=== PATIENT | male | born 1955 | race Caucasian/White ===

== ENCOUNTER → 2019-05-14 | Outpatient (CLI) | payer MEDICARE, OTHER | END | disposition home or self-care (01) | LOC: LABWHC1 16:46 | PROVIDERS: ATTEND Orthopaedic Surgery | DX: M79.671 Pain in right foot (principal); M84.374A Stress fracture, right foot, initial encounter for fracture | CPT/HCPCS: 36415; 82306 ==

== ENCOUNTER → 2019-06-11 | Outpatient (CLI) | payer MEDICARE, OTHER | END | disposition home or self-care (01) | LOC: LABWHC1 17:14 | PROVIDERS: ATTEND Orthopaedic Surgery | DX: M79.671 Pain in right foot (principal); M84.374D Stress fracture, right foot, subsequent encounter for fracture with routine healing | CPT/HCPCS: 36415; 82306 ==

== ENCOUNTER → 2022-02-23 | Outpatient (CLI) | payer OTHER, MEDICARE ==
--- NOTE | 2022-02-26 21:03 | CT ---
EXAMINATION TYPE: CT pelvis wo con CT DLP: 480 mGycm, Automated exposure control for dose reduction was used. DATE OF EXAM: 02/23/2022 4:46 PM COMPARISON: None. CLINICAL INDICATION:Male, 66 years old with history of N40.1 Benign prostatic hyperplasia with lower urin; Benign prostatic hyperplasia with lower urin TECHNIQUE: Standard CT of the pelvis without IV or oral contrast. Lack of IV or oral contrast limit s evaluation of solid and hollow organ viscera. Coronal and sagittal reformats were performed. FINDINGS: BLADDER: Distended. REPRODUCTIVE: Prostate is enlarged in size measuring 5.4 cm in transverse dimension. There is median lobe hypertrophy changes which extends into the inferior aspect of the bladder lumen. ABDOMEN & PELVIS STOMACH AND BOWEL: No evidence of bowel obstruction. PERITONEUM: No evidence of pneumoperitoneum or free fluid. VASCULATURE: No evidence of aortic aneurysm. MUSCULOSKELETAL: No acute osseous abnormalities. Multilevel disc degeneration changes throughout the visualized lumbar spine. LYMPH NODES: No gross evidence for lymphadenopathy. SOFT TISSUE/ABDOMINAL WALL: Unremarkable IMPRESSION: Substantial prostatomegaly with median lobe hypertrophy. Correlate with serum PSA.
== END | disposition home or self-care (01) ==
LOC: RADCTMAIN 15:56
PROVIDERS: ATTEND Urology
DX: N40.1 Benign prostatic hyperplasia with lower urinary tract symptoms (principal); R93.41 Abnormal radiologic findings on diagnostic imaging of renal pelvis, ureter, or bladder
CPT/HCPCS: 72192

== ENCOUNTER → 2022-09-12 | Outpatient (CLI) | payer OTHER, MEDICARE ==
[2022-09-12 18:58] LABS: Appearance,Urine Clear (Clear); Bilirubin,Urine Negative (Negative); Blood,Urine Negative (Negative); Color,Urine Yellow; Glucose,Urine (UA) Negative (Negative); Ketones,Urine Negative (Negative); Leukocyte Esterase,Urine Negative (Negative); Nitrite,Urine Negative (Negative); Protein,Urine Trace (Negative)
[2022-09-12 22:48] LABS: HCT 44.5 % (39.6-50.0); HGB 15.6 g/dL (13.0-17.0); MCH 31.9 pg (27.0-32.0); MCHC 35.1 g/dL (32.0-37.0); Mean Platelet Volume 10.4 fL (9.5-12.2); NRBC Per 100 WBC 0 /100 WBCS (0.0-0.0); Platelet Count 179 X 10*3/uL (140-440); RBC 4.89 X 10*6/uL (4.40-5.60); WBC 8.39 X 10*3/uL (4.50-10.00)
[2022-09-13 00:31] LABS: African American GFR (CKD) 112.7 (60.0-200.0); Anion Gap 11.3 mmol/L (10.00-18.00); BUN/Creat Ratio 47.13 Ratio (12.00-20.00); Blood Urea Nitrogen 32.8 mg/dL (9.0-27.0); Calcium 9.5 mg/dL (8.7-10.3); Carbon Dioxide 25.9 mmol/L (20.0-27.5); Non-African American GFR(CKD) 97.2 (60.0-200.0); Potassium 4.4 mmol/L (3.5-5.5)
== END | disposition home or self-care (01) ==
LOC: LABPAT 16:01
PROVIDERS: ATTEND Urology
DX: Z01.812 Encounter for preprocedural laboratory examination (principal); N40.1 Benign prostatic hyperplasia with lower urinary tract symptoms
CPT/HCPCS: 80048; 81003; 85027; 87086

== ENCOUNTER 2022-09-21 07:58 | Inpatient (IN) | payer OTHER, MEDICARE ==
[2022-09-20 10:59] VITALS: BMI 27.4
--- NOTE | 2022-09-21 07:40 | P.HPIHPCON ---
History of Present Illness H&P Date: 09/21/22 Chief Complaint: BPH This is a 66-year-old male with history of 100 g prostate. Causing both obstructive and overactive bladder symptoms. Underwent a cystoscopy which showed a significant prostate enlargement, on CT confirmed prostate size to be greater than 100 g. Given the size of his prostate the option of robotic simple prostatectomy versus HoLEP. Risk and benefit of each approach were discussed. He agreed to proceed with a robotic simple prostatectomy. Risk of bleeding, infection, urinary incontinence, erectile dysfunction, retrograde ejaculation, strictures, persistent storage symptoms. Risk of injury to nearby organs which includes but not limited to the bladder, ureter, rectum. Discussed also risks of anesthesia. He understood all the risk and agreed to proceed Consent for Procedure: I have explained the operation/procedure to the patient, including the risks, benefits, side effects, alternative therapies (including not receiving the proposed treatment or service), the likelihood of the patient achieving his/her goals, and potential recuperation problems for the procedure/sedation/analgesia, as well as any blood products, if indicated. I also explained to the patient the risks, benefits and side effects of the alternatives, as well as the risks related to not receiving the proposed procedure, care, treatment, or services. Past Medical History Past Medical History: Osteoarthritis (OA), Prostate Disorder, Sleep Apnea/CPAP/BIPAP Additional Past Medical History / Comment(s): Bilateral hearing aid use. CPAP use. Enlarged prostate. "Normally run a low pulse, usually around 56". History of Any Multi-Drug Resistant Organisms: None Reported Past Surgical History: Orthopedic Surgery Additional Past Surgical History / Comment(s): Surgery for fractured tibia. Past Anesthesia/Blood Transfusion Reactions: No Reported Reaction Additional Past Anesthesia/Blood Transfusion Reaction / Comment(s): Usually runs a low HR. Past Psychological History: No Psychological Hx Reported Smoking Status: Former smoker Past Alcohol Use History: Rare Additional Past Alcohol Use History / Comment(s): Quit smoking 17 yrs ago. Past Drug Use History: None Reported - Past Family History Mother Family Medical History: No Reported History Medications and Allergies Home Medications Medication Instructions Recorded Confirmed Type Meloxicam [Mobic] 15 mg PO DAILY 09/20/22 09/20/22 History Tamsulosin HCl [Flomax] 0.4 mg PO DAILY 09/20/22 09/20/22 History Allergies Allergy/AdvReac Type Severity Reaction Status Date / Time No Known Allergies Allergy Verified 09/20/22 10:28 Surgical - Exam - General no distress, no pain - Eyes normal ocular movement, no pale - ENT normal nares, normal mucosa - Respiratory normal expansion, normal respiratory effort - Psychiatric oriented to time, oriented to person, oriented to place Assessment and Plan Assessment: OR for robotic simple prostatectomy
[~2022-09-21 07:58] MED LIST: HEPARIN SODIUM,PORCINE/PF 5,000 UNIT/0.5 ML SYRINGE SQ PRN
[2022-09-21] MEDS ORDERED: ONDANSETRON 4 MG/2 ML VIAL ONE (08:30)
[2022-09-21] MEDS ORDERED: LACTATED RINGERS 1,000 ML IV ONE ×5 (08:33→14:52)
[2022-09-21] MEDS ORDERED: ONDANSETRON 4 MG/2 ML VIAL IVP ONE (08:33)
[2022-09-21] MEDS ORDERED: DEXAMETHASONE SOD PHOSPHATE 4 MG/ML 1 ML VIAL IVP ONE (08:34)
[2022-09-21] MEDS ORDERED: MIDAZOLAM 2 MG/2 ML VIAL IVP ONE (08:42)
[2022-09-21] MEDS ORDERED: ROPIVACAINE 5 MG/ML 30 ML VIAL ONE (11:50)
[2022-09-21] MEDS ORDERED: SUCCINYLCHOLINE CHLORIDE 200 MG/10 ML VIAL IV ONE (11:50)
[2022-09-21] MEDS ORDERED: SODIUM CHLORIDE 0.9% (PF) 10 ML VIAL ONE (11:50)
[2022-09-21] MEDS ORDERED: DEXAMETHASONE SOD PHOSPHATE 4 MG/ML 1 ML VIAL ONE (11:50)
[2022-09-21] MEDS ORDERED: PROPOFOL 10 MG/ML 20 ML VIAL IV ONE (11:50)
[2022-09-21] MEDS ORDERED: MIDAZOLAM 2 MG/2 ML VIAL ONE (11:50)
[2022-09-21] MEDS ORDERED: LIDOCAINE 2% INJ 20 MG/ML (2 ML VIAL) ONE (11:50)
[2022-09-21] MEDS ORDERED: fentaNYL (PF) 50 MCG/ML 2 ML AMP ONE (11:50)
[2022-09-21] MEDS ORDERED: ROCURONIUM 10 MG/ML (5 ML VIAL) IV ONE (11:50)
[2022-09-21] MEDS ORDERED: GLYCOPYRROLATE 0.2 MG/ML 2 ML VIAL ONE (11:50)
[2022-09-21] MEDS ORDERED: NEOSTIGMINE 1 MG/ML 10 ML VIAL ONE (11:50)
[2022-09-21] MEDS ORDERED: HYDROmorphone (PF) 1 MG/ML ONE (11:50)
--- NOTE | 2022-09-21 13:12 | P.ANPRN ---
Procedure Note - Anesthesia - Nerve Block Performed Bilateral Erector Spinae Single Time Out Performed: Yes Date of Procedure: 09/21/22 Procedure Start Time: 08:42 Procedure Stop Time: 08:48 Location of Patient: PreOp Indication: Acute Post-Operative Pain, Requested by Surgeon Sedation Type: Sedate with meaningful contact maintained Preparation: Sterile Prep Position: Prone Needle Types: Pajunk Needle Gauge: 21 Ultrasound used to visualize needle placement: Yes Ultrasound used to observe medication spread: Yes Blood Aspirated: No Pain Paresthesia on Injection Noted: No Resistance on Injection: Normal Image Stored and Saved: Yes Events: Uneventful and Well Tolerated (ropi .5% 15cc plus ns 10cc plus dexamethasone 4mg given bilaterally at L1)
--- NOTE | 2022-09-21 14:41 | P.OP ---
Date of Procedure: 09/21/22 Preoperative Diagnosis: BPH Postoperative Diagnosis: Same Procedure(s) Performed: Robotic-assisted laparoscopic simple prostatectomy Implants: None Anesthesia: JACOB Surgeon: Jonathan Steele Parimutuel Clerk #1: Brigid Russell Estimated Blood Loss (ml): 75 Pathology: other (Prostate adenoma) Condition: stable Disposition: PACU Indications for Procedure: This is a 66-year-old male with history of 100 g prostate. Causing both obstruc tive and overactive bladder symptoms. Underwent a cystoscopy which showed a significant prostate enlargement, on CT confirmed prostate size to be greater than 100 g. Given the size of his prostate the option of robotic simple prostatectomy versus HoLEP. Risk and benefit of each approach were discussed. He agreed to proceed with a robotic simple prostatectomy. Risk of bleeding, infection, urinary incontinence, erectile dysfunction, retrograde ejaculation, strictures, persistent storage symptoms. Risk of injury to nearby organs which includes but not limited to the bladder, ureter, rectum. Discussed also risks of anesthesia. He understood all the risk and agreed to proceed Operative Findings: Bilateral prostate adenoma, with significant enlargement of left lobe with intravesical extension Description of Procedure: After preoperative antibiotics were started, the patient was taken to the operating room. Anesthesia was induced and the patient was placed in a supine position with adequate padding of the pressure points, shoulders, back, legs and arms. He was then prepped and draped in the standard fashion. A critical pause was performed using two patient identifiers. A 16F chase catheter was placed to gravity drainage. A pneumoperitoneum was obtained using a Veress needle, after pneumoperitoneum was obtained a 8 mm camera port was placed. Under direct vision a 8mm robotic ports was placed lateral to each rectus slightly below the camera port. The left iliac fossa 8mm port was placed. The right medical billing assistant right iliac fossa 12mm port and right paramedian 5mm portwere placed. After the patient was placed in the trendelenberg position, the robot was then docked to the 8mm robotic ports and then each robotic arm and tower was checked in relation to the patient's legs and hands to avoid inadvertent compression. The peritoneal cavity was inspected. Adhesions were taken down along the left lower quadrant An inverted U-shaped incision began laterally to the left medial umbilical ligament and extended high across the midline to the right umbilical ligament. The limbs of the "U" extended to the level of the vasa on both sides. We next developed the preperitoneal space and the space of Retzius. Cautery was used to dissected the bladder away from the prostate, the incision was made in close proximity to the prostate, and incision was extended laterally and at this point the plane between the adenoma and the surgical capsule is identified. Of note patient had significant enlargement of the left lobe in comparison to the right with significant intravesical extension Both ureteral orifices were identified and neither was injured during the dissection . The adenoma was dissected off of the capsule by combination of blunt dissection and minimum cautery. dissection was initially started along the anterior surface and posterior surface of adenoma, and this was carried laterally. The dissection was carried to the apex, at this point the urethral-prostatic junction was visualized and the prostate was transected at the junction. Prostate adenoma was placed in an endocatch bag . A 9and 9 inch 3-0 V-Lock suture was used to anastomose the urethra and bladder, starting at the 6:00 posterior position. Mucosa was secured in every stitch, to ensure a mucosa to mucosa anastomosis. The stitch was regularly cinched and the anastomosis tightened. . The 20 Fr Chase catheter was advanced, the bladder filled, and the anastomosis was tested. Anastomsis was watertight at 150 mL. balloon was inflated to 10 mL The robot was undocked. specimen was extracted from the supraumbilical incision. The periumbilical fascia was closed with 1-0-PDS suture in figure of 8 fashion. All ports were closed with a subcuticular 4-0 monocryl and Dermabond. Sponge, instrument, and needle counts were correct at the end of the case x2. The patient tolerated the surgery well and without complication. He awoke without difficulty and was taken to the recovery room in stable condition
[2022-09-21] MEDS ORDERED: HYDROmorphone 0.5 MG/0.5 ML SYRINGE IVP ONE (16:43)
[2022-09-21] MEDS: D5-0.45% NACL WITH KCL 20MEQ/L 1,000 ML IV SCH (17:27)
[2022-09-21] MEDS: HEPARIN SODIUM,PORCINE/PF 5,000 UNIT/0.5 ML SYRINGE SQ SCH (17:35)
[2022-09-21] MEDS: KETOROLAC 15 MG/ML 1 ML VIAL IVP SCH (18:19)
[2022-09-22] MEDS: HEPARIN SODIUM,PORCINE/PF 5,000 UNIT/0.5 ML SYRINGE SQ SCH ×2 (00:42→08:18)
[2022-09-22] MEDS: D5-0.45% NACL WITH KCL 20MEQ/L 1,000 ML IV SCH (06:14)
[2022-09-22] MEDS: KETOROLAC 15 MG/ML 1 ML VIAL IVP SCH (07:50)
[2022-09-22 07:58] VITALS: BP 108/56; PULSE 56; RESP 19; TEMP 98.1
--- NOTE | 2022-09-22 08:35 | P.DS ---
Providers Date of admission: 09/21/22 07:58 Expected date of discharge: 09/22/22 Attending physician: Jonathan Steele MD Primary care physician: [facility] Course: The patient is a 66-year-old male with a history of 100 g prostate which has been causing both obstructive and overactive bladder symptoms. He underwent a cystoscopy which showed a significant prostate enlargement. On CT confirmation prostate size to be greater than 100 g. The patient underwent a robotic- assisted laparoscopic simple prostatectomy on 09/21/[address] Steele. The patient tolerated the surgery well and without complication. He was then taken to the PACU in stable condition. POD #1 The patient reports his pain has been well managed. He is tolerating a diet and denies any nausea or vomiting. He is afebrile and his vital signs are stable. Laparoscopic incisions clean dry and intact. His Jason catheter is draining light pink tinged urine. He will be discharged home with his Jason catheter. He is to follow up in our office with Dr. Steele on 10/02/22 and will have his Jason catheter removed at that time. He was instructed to start taking his Cipro the day before his follow-up visit. Prescriptions for Cipro and Toradol were sent to his pharmacy. Impression and plan of care have been directed as dictated by the signing physician. Sugar Grider nurse practitioner acting as scribe for signing physician. Sugar Grider [facility] Palliative Care/Urology Spectralink [email or web address] Email: [email or web address] I examined and concur with the above document, Avelina Mcclain MD Patient Condition at Discharge: Good Plan - Discharge Summary Discharge Rx Participant: No New Discharge Prescriptions: New Ciprofloxacin HCl [Cipro] 250 mg PO Q12HR 3 Days #6 tab Ketorolac [Toradol] 10 mg PO Q6HR PRN #10 tab PRN Reason: Pain Continue Meloxicam [Mobic] 15 mg PO DAILY Tamsulosin HCl [Flomax] 0.4 mg PO DAILY Discharge Medication List Meloxicam [Mobic] 15 mg PO DAILY 09/20/22 [History] Tamsulosin HCl [Flomax] 0.4 mg PO DAILY 09/20/22 [History] Ciprofloxacin HCl [Cipro] 250 mg PO Q12HR 3 Days #6 tab 09/22/22 [Rx] Ketorolac [Toradol] 10 mg PO Q6HR PRN #10 tab 09/22/22 [Rx] Follow up Appointment(s)/Referral(s): Jonathan Steele MD [STAFF PHYSICIAN] - 10/02/22 Patient Instructions/Handouts: *[facility] - Jason Catheter Instructions, *[facility] - Managing Your Pain After Surgery Without Opioids Activity/Diet/Wound Care/Special Instructions: - Discharge home with Jason catheter. Instruct how to use with overnight drainage bag as well as urinary leg bag - Blood in the urine is normal - Increase fluid intake - Jason catheter will be removed in the office in approximately 10 days - on 10/02 - Begin taking Cipro one day prior to Jason catheter removal - May take [id number] stool softener as needed - Okay to shower, no tub baths - No lifting, driving, or strenuous activity - Reassure patient the abdominal wall ecchymosis and penoscrotal swelling are normal Discharge Disposition: HOME SELF-CARE
== END 2022-09-22 11:21 | disposition home or self-care (01) | DRG 707 ==
LOC: 2ORMAIN 07:58 → 4SSUR 16:09
PROVIDERS: ADMIT Urology; ATTEND Urology
PROC: 8E0W4CZ Robotic Assisted Procedure of Trunk Region, Percutaneous Endoscopic Approach (ICD-10-PCS; 2022-09-21)
PROC: 0VT04ZZ Resection of Prostate, Percutaneous Endoscopic Approach (ICD-10-PCS; principal; 2022-09-21 10:10)
DX: N40.1 Benign prostatic hyperplasia with lower urinary tract symptoms (principal); N13.8 Other obstructive and reflux uropathy; N32.81 Overactive bladder; Z79.1 Long term (current) use of non-steroidal anti-inflammatories (NSAID); Z79.899 Other long term (current) drug therapy; Z87.891 Personal history of nicotine dependence
CPT/HCPCS: 64999; 86850; 86900; 86901